=== PATIENT | female | born 1985 | race American Indian/Alaskan Native ===

== ENCOUNTER 2021-04-21 15:23 | Emergency (ER) | payer OTHER ==
--- NOTE | 2021-04-21 16:18 | Emergency Department Report ---
ED General Adult HPI - General Chief complaint: Psych Stated complaint: MEDICAL CLEARANCE Time Seen by Provider: 04/21/21 15:51 Source: patient, police Mode of arrival: Ambulatory Limitations: Altered Mental Status - History of Present Illness Initial comments: Patient is a 35-year-old F [place] female who admits to huffing compressed air recreationally. States her parents came to her apartment today found what she was doing and called police and asked for her to be brought to the hospital for evaluation. Patient states she is not homicidal suicidal. States she does have a treatment program set up to begin next week at [place]. She denies any auditory or visual hallucinations. States she does not understand why she was brought to the emergency department against her will. ED Review of Systems ROS: Stated complaint: MEDICAL CLEARANCE Other details as noted in HPI Comment: All other systems reviewed and negative ED Physical Exam - General Limitations: Altered Mental Status General appearance: alert, in no apparent distress - Head Head exam: Present: atraumatic, normocephalic - Eye Eye exam: Present: normal appearance - ENT ENT exam: Present: mucous membranes moist - Neck Neck exam: Present: normal inspection - Respiratory Respiratory exam: Present: normal lung sounds bilaterally. Absent: respiratory distress, wheezes, rales, rhonchi - Cardiovascular Cardiovascular Exam: Present: regular rate, normal rhythm. Absent: systolic murmur, diastolic murmur, rubs, gallop - GI/Abdominal GI/Abdominal exam: Present: soft, normal bowel sounds - Extremities Exam Extremities exam: Present: normal inspection - Back Exam Back exam: Present: normal inspection - Neurological Exam Neurological exam: Present: alert, oriented X3 - Psychiatric Psychiatric exam: Present: normal affect, normal mood - Skin Skin exam: Present: warm, dry, intact, normal color. Absent: rash ED Medical Decision Making - Medical Decision Making Although chronic huffing can be dangerous the patient's vital signs are within normal limits. She is an adult with decision-making capacity. Patient is not homicidal suicidal. Patient can be discharged home. Hopefully the patient keeps her appointment for rehabilitation. Critical care attestation.: If time is entered above; I have spent that time in minutes in the direct care of this critically ill patient, excluding procedure time. ED Disposition Clinical Impression: Huffing Disposition: 01 HOME / SELF CARE / HOMELESS Is pt being admited?: No Does the pt Need Aspirin: No Condition: Stable Instructions: Substance Use Disorder and Mental Illness, Inhalant Use Disorder Referrals: PRIMARY CARE, [Primary Care Provider] - 3-5 Days Time of Disposition: 16:18
== END 2021-04-21 16:48 | disposition home or self-care (01) ==
LOC: ED 15:23
DX: F18.129 Inhalant abuse with intoxication, unspecified (principal)
CPT/HCPCS: 99282